=== PATIENT | male | born 1975 | race Caucasian/White ===

== ENCOUNTER 2022-01-08 19:46 | Emergency (ER) | payer MEDICAID ==
[~2022-01-08] VITALS: Ht 182.9 cm; Wt 99.8 kg
[2022-01-08 19:50] VITALS: BP_SYST 153
--- NOTE | 2022-01-08 19:50 | NUR ---
Patient triaged and placed in waiting room. VSS and patient appears in no acute distress at this time. Accompanied by FAM MEMBER, awaiting available bed, and MD notified of need for MSE.
--- NOTE | 2022-01-08 23:26 | NUR ---
Patient to ER bed 8 to gown for evaluation. Side rails up. Report given to Ronnell VALLEJO.
[2022-01-09 00:02] VITALS: BP_SYST 146
--- NOTE | 2022-01-09 00:03 | NUR ---
Dr. Contreras verbally informed of patient's vital signs. Dr. Contreras verbally acknowledged understanding, no new orders.
--- NOTE | 2022-01-09 00:03 | NUR ---
Patient given written and verbal discharge instructions and verbalizes understanding. ER MD Dr. Contreras discussed with patient the results and treatment provided. Patient in stable condition. ID arm band removed. Patient educated on pain management and to follow up with PMD. Pain Scale 0/10. Opportunity for questions provided and answered. Medication side effect fact sheet provided.
== END 2022-01-09 00:02 | disposition home or self-care (01) ==
LOC: SED 19:46
DX: S00.83XA Contusion of other part of head, initial encounter (principal); S10.93XA Contusion of unspecified part of neck, initial encounter; I10 Essential (primary) hypertension; W22.8XXA Striking against or struck by other objects, initial encounter; Y93.89 Activity, other specified; Y92.89 Other specified places as the place of occurrence of the external cause; Y99.8 Other external cause status
CPT/HCPCS: 99281

== ENCOUNTER 2022-06-18 11:27 | Emergency (ER) | payer SELFPAY ==
[~2022-06-18] VITALS: Ht 182.9 cm; Wt 104.3 kg
[2022-06-18 11:30] VITALS: BP_SYST 172
[2022-06-18] MEDS ORDERED: CYCLOBENZAPRINE HCL 10 MG TABLET (FLEXERIL) PO ONE (12:15)
[2022-06-18] MEDS ORDERED: KETOROLAC TROMETHAMINE 60 MG/2 ML VIAL IM ONE ×2 (12:15→14:56)
[2022-06-18] MEDS ORDERED: CYCL10TA24 PO (13:15)
[2022-06-18] MEDS ORDERED: IBUP-1971 PO (13:15)
[2022-06-18] MEDS ORDERED: LIDO1ADH14 TP (13:15)
[2022-06-18] MEDS ORDERED: CYCLOBENZAPRINE HCL 10 MG TABLET (FLEXERIL) ONE (14:56)
--- NOTE | 2022-06-18 15:00 | NUR ---
Patient given written and verbal discharge instructions and verbalizes understanding. ER MD discussed with patient the results and treatment provided. Patient in stable condition. ID arm band removed. IV catheter removed intact and dressing applied, no active bleeding. Rx of flexeril, lido patch, ibuprofen given. Patient educated on pain management and to follow up with PMD. Pain Scale 2/10. Opportunity for questions provided and answered. Medication side effect fact sheet provided.
[2022-06-18 15:03] VITALS: BP_SYST 134
== END 2022-06-18 15:03 | disposition home or self-care (01) ==
LOC: SED 11:27
DX: S29.011A Strain of muscle and tendon of front wall of thorax, initial encounter (principal); Z88.6 Allergy status to analgesic agent; Z79.899 Other long term (current) drug therapy; X58.XXXA Exposure to other specified factors, initial encounter; Y93.89 Activity, other specified; Y92.89 Other specified places as the place of occurrence of the external cause; Y99.8 Other external cause status
CPT/HCPCS: 99284; 71045; 71100; 96372; J1885

== ENCOUNTER 2022-08-24 02:42 | Emergency (ER) | payer SELFPAY ==
[~2022-08-24] VITALS: Ht 182.9 cm; Wt 104.3 kg
[~2022-08-24 02:42] MED LIST: CYCL10TA24 PO; IBUP-1971 PO; LIDO1ADH14 TP
[2022-08-24 02:59] VITALS: BP_SYST 172
--- NOTE | 2022-08-24 02:59 | NUR ---
Patient to ER bed 7 to gown for evaluation. Side rails up. Report given to DOUG VALLEJO(REG).
--- NOTE | 2022-08-24 03:15 | NUR ---
PT FROM HOME WITH C/O RECTAL BLEEDING FOR ONE DAY. PT DENIES INJURY, BLOODY STOOLS, N/V, AND DIARRHEA. PT DENIES TAKING BLOOD THINNERS. PT A&O X4 AND AMBULATORY. SAFETY PRECAUTIONS IN PLACE.
--- NOTE | 2022-08-24 03:30 | NUR ---
MD AT BEDSIDE WITH PATIENT FOR EVALUATION.
[2022-08-24] MEDS ORDERED: HYDR30CR79 TP (03:46)
[2022-08-24] MEDS ORDERED: DOCU-144 PO (03:46)
[2022-08-24 04:17] VITALS: BP_SYST 169
--- NOTE | 2022-08-24 04:17 | NUR ---
Patient given written and verbal discharge instructions and verbalizes understanding. ER DR. BUSTAMANTE discussed with patient the results and treatment provided. Patient in stable condition. ID arm band removed. Rx of COLACE AND HYDROCORTISONE given. Patient educated on pain management and to follow up with PMD. Pain Scale 0. Opportunity for questions provided and answered. Medication side effect fact sheet provided.
== END 2022-08-24 04:17 | disposition home or self-care (01) ==
LOC: SED 02:42
DX: K62.5 Hemorrhage of anus and rectum (principal); K64.4 Residual hemorrhoidal skin tags; Z88.6 Allergy status to analgesic agent; Z79.899 Other long term (current) drug therapy
CPT/HCPCS: 99283